=== PATIENT | male | born 1960 | race Asian ===

== ENCOUNTER 2018-08-29 19:07 | Emergency (ER) | payer OTHER ==
[~2018-08-29] VITALS: Ht 162.6 cm; Wt 59.0 kg
[2018-08-29 19:25] VITALS: Ht 162.6 cm; Wt 59.0 kg
[2018-08-29 21:18] VITALS: BP 135/85
== END 2018-08-29 21:18 | disposition home or self-care (01) ==
LOC: ED 19:07
DX: S90.812A Abrasion, left foot, initial encounter (principal); R03.0 Elevated blood-pressure reading, without diagnosis of hypertension; W54.0XXA Bitten by dog, initial encounter; Y93.89 Activity, other specified; Y92.89 Other specified places as the place of occurrence of the external cause; Y99.8 Other external cause status